=== PATIENT | female | born 1990 | race Caucasian/White ===

== ENCOUNTER 2019-08-25 09:45 | Emergency (ER) | payer MEDICAID ==
[~2019-08-25] VITALS: Ht 162.6 cm; Wt 79.5 kg
[~2019-08-25 09:45] MED LIST: DIPH25CA83 PO; METH4TAB PO; NITR100C6 PO; TRIA15CR61 TP
[2019-08-25 09:56] VITALS: BP 117/77
[2019-08-25] MEDS ORDERED: PNV1TABL75 PO (10:09)
== END 2019-08-25 11:06 | disposition home or self-care (01) ==
LOC: ER 09:45
DX: Z34.03 Encounter for supervision of normal first pregnancy, third trimester (principal); J45.909 Unspecified asthma, uncomplicated; Z79.899 Other long term (current) drug therapy; Z3A.34 34 weeks gestation of pregnancy
CPT/HCPCS: 99281

== ENCOUNTER 2021-03-13 11:04 | Emergency (ER) | payer MEDICAID ==
[~2021-03-13] VITALS: Ht 162.6 cm; Wt 65.9 kg
[~2021-03-13 11:04] MED LIST changes: -DIPH25CA83 PO; -METH4TAB PO; -NITR100C6 PO; +PNV1TABL75 PO; -TRIA15CR61 TP
[2021-03-13 11:06] VITALS: BP 137/98
--- NOTE | 2021-03-13 16:34 | NUR ---
Patient not in lobby for the third time, attempted to call patient at listed number. Number listed was incorrect. Dr. Robb aware.
== END 2021-03-13 16:35 | disposition left against medical advice (07) ==
LOC: ER 11:05
DX: S61.412A Laceration without foreign body of left hand, initial encounter (principal); Z53.21 Procedure and treatment not carried out due to patient leaving prior to being seen by health care provider; W45.8XXA Other foreign body or object entering through skin, initial encounter; Y93.9 Activity, unspecified; Y92.9 Unspecified place or not applicable; Y99.9 Unspecified external cause status

== ENCOUNTER 2021-11-05 10:26 | Emergency (ER) | payer MEDICAID ==
[~2021-11-05] VITALS: Ht 162.6 cm; Wt 65.0 kg
[2021-11-05 10:32] VITALS: BP 129/91
== END 2021-11-05 11:25 | disposition home or self-care (01) ==
LOC: ER 10:26
DX: S09.90XA Unspecified injury of head, initial encounter (principal); E51.9 Thiamine deficiency, unspecified; J45.909 Unspecified asthma, uncomplicated; Z79.899 Other long term (current) drug therapy; Y08.89XA Assault by other specified means, initial encounter; Y93.89 Activity, other specified; Y92.89 Other specified places as the place of occurrence of the external cause; Y99.8 Other external cause status
CPT/HCPCS: 99282

== ENCOUNTER 2021-12-13 21:23 | Emergency (ER) | payer MEDICAID ==
[~2021-12-13] VITALS: Ht 162.6 cm; Wt 65.0 kg
[2021-12-13 21:29] VITALS: BP 129/83
[2021-12-13] MEDS ORDERED: triamcinolone acetonide 40mg/ml inj IM ONE (22:00)
[2021-12-13] MEDS ORDERED: PRED10TA PO (22:03)
== END 2021-12-13 22:15 | disposition home or self-care (01) ==
LOC: ER 21:23
DX: L23.7 Allergic contact dermatitis due to plants, except food (principal); J45.909 Unspecified asthma, uncomplicated; Z79.899 Other long term (current) drug therapy
CPT/HCPCS: 96372; 99283; J3301

== ENCOUNTER 2022-10-02 18:02 | Emergency (ER) | payer MEDICAID ==
[~2022-10-02] VITALS: Ht 162.6 cm; Wt 61.5 kg
[~2022-10-02 18:02] MED LIST changes: +PRED10TA PO
[2022-10-02 19:19] LABS: CLARITY,URINE SLIGHTLY CLOUDY (Clear); COLOR,URINE YELLOW (Yellow); GLUCOSE, URINE NEGATIVE (Neg); KETONES,URINE NEGATIVE (Neg); LEUKOCYTE ESTERASE ,URINE SMALL (Neg); NITRITES, URINE POSITIVE (Neg); OCCULT BLOOD,URINE SMALL (Neg); PROTEIN,URINE NEGATIVE (Neg); UROBILINOGEN,URINE 0.2 E.U/dL (0.2-1.0)
[2022-10-02 19:21] LABS: URINE HCG NEGATIVE (NEG)
[2022-10-02 19:28] LABS: BACTERIA,URINE 1+ /HPF (Neg); SQUAMOUS EPITHELIAL CELL,UR FEW /LPF (FEW); UA COLLECTION TYPE CLN CATCH MIDSTREAM
[2022-10-02 20:12] LABS: BASOPHILS % (AUTO) 0.4 % (0-1); EOSINOPHILS # (AUTO) 0.2 X10'3 (0-0.9); EOSINOPHILS % (AUTO) 1.6 % (0-6); HEMOGLOBIN 14.1 g/dl (12.0-16.0); LYMPHOCYTES # (AUTO) 1.4 X10'3 (1.1-4.8); LYMPHOCYTES % (AUTO) 11.5 % (21-51); MEAN CORPUSCULAR HEMOGLOBIN 30.8 PG (27.0-31.0); MEAN CORPUSCULAR HGB CONC 34.3 g/dL (33.0-36.5); MEAN CORPUSCULAR VOLUME 89.7 FL (78-98); MEAN PLATELET VOLUME 7.5 FL (7.4-10.4); MONOCYTES # (AUTO) 1.2 X10'3 (0-0.9); MONOCYTES % (AUTO) 9.6 % (2-12); NEUTROPHILS # (AUTO) 9.4 X10'3 (1.8-7.7); NEUTROPHILS % (AUTO) 76.9 % (42-75); PLATELET COUNT 338 X10'3 (140-440); RED BLOOD COUNT 4.57 X10'6 (4.20-5.60); RED CELL DISTRIBUTION WIDTH 12.8 % (11.5-14.5); WHITE BLOOD COUNT 12.2 X10'3 (4.5-11.0)
--- NOTE | 2022-10-02 20:19 | NUR ---
PT DISCHARGED UNDER WRONG PATIENT.
[2022-10-02 20:23] LABS: ALANINE AMINOTRANSFERASE 22 U/L (12-78); ALBUMIN 3.7 G/DL (3.4-5.0); ALKALINE PHOSPHATASE 58 IU/L (46-116); ANION GAP 8 (8-16); ASPARTATE AMINO TRANSFERASE 19 U/L (10-37); BILIRUBIN,TOTAL 0.7 MG/DL (0.1-1.0); BLOOD UREA NITROGEN 11 MG/DL (7-18); BUN/CREATININE RATIO 15.1 (6.6-38.0); CALCIUM 8.5 MG/DL (8.5-10.1); CHLORIDE 101 MMOL/L (99-107); CREATININE 0.73 MG/DL (0.40-0.90); GLUCOSE 122 MG/DL (70-104); LIPASE 81 U/L (73-393); POTASSIUM 3.9 MMOL/L (3.5-5.1); SODIUM 135 MMOL/L (135-145); TOTAL CARBON DIOXIDE 25.7 MMOL/L (24-32); TOTAL PROTEIN 7.3 G/DL (6.4-8.2); eGFR > 90 ML/MIN
[2022-10-02] MEDS ORDERED: CefTRIAXone 2gm/D5W 50ml BAG 50 ML IV ONE (20:30)
[2022-10-02] MEDS ORDERED: ondansetron/PF 4mg/2ml inj IV ONE (20:30)
[2022-10-02] MEDS ORDERED: normal saline 1000ml 1,000 ML IV ONE (20:30)
[2022-10-02] MEDS ORDERED: morphine 4 MG/ML inj SYRINge IV ONE (20:30)
[2022-10-02] MEDS ORDERED: ketorolac trometh. 30mg/ml inj. IV ONE (20:30)
[2022-10-02] MEDS ORDERED: ONDA4TAB12 PO (21:00)
[2022-10-02] MEDS ORDERED: SULF1TAB45 PO (21:00)
[2022-10-02] MEDS ORDERED: HYDR-3965 PO (21:00)
[2022-10-02 21:54] VITALS: BP 126/85
== END 2022-10-02 21:57 | disposition home or self-care (01) ==
LOC: ER 18:03
DX: N12 Tubulo-interstitial nephritis, not specified as acute or chronic (principal); J45.909 Unspecified asthma, uncomplicated; Z79.899 Other long term (current) drug therapy
CPT/HCPCS: 36415; 80053; 81001; 81025; 83690; 85025; 87077; 87088; 87186; 96365; 96375; 99284; J0696; J1885; J2270; J2405; J7030

== ENCOUNTER 2024-01-02 14:49 | Emergency (ER) | payer MEDICAID ==
[~2024-01-02] VITALS: Ht 165.1 cm; Wt 68.7 kg
[~2024-01-02 14:49] MED LIST changes: +ONDA4TAB12 PO
[2024-01-02 14:52] VITALS: BP 127/90; PULSE 99; RESP 18; O2SAT 100
[2024-01-02] MEDS ORDERED: PRED20TA PO (15:16)
[2024-01-02] MEDS ORDERED: SKIN30CL4 TOP (15:16)
[2024-01-02] MEDS: dexamethasone sod phosphate 10mg/ml inj IM STA (15:20)
== END 2024-01-02 15:37 | disposition home or self-care (01) ==
LOC: ER 14:49
DX: L23.7 Allergic contact dermatitis due to plants, except food (principal); J45.909 Unspecified asthma, uncomplicated; Z79.899 Other long term (current) drug therapy
CPT/HCPCS: 96372; 99283; J1100

== ENCOUNTER 2024-11-16 23:52 | Emergency (ER) | payer MEDICAID ==
[~2024-11-16] VITALS: Ht 162.6 cm; Wt 56.4 kg
[~2024-11-16 23:52] MED LIST changes: +ONDA-243 PO; -ONDA4TAB12 PO; +SKIN30CL4 TOP
[2024-11-17] VITALS: BP 110/56; PULSE 89; RESP 15; TEMP 96.8; O2SAT 97
[2024-11-17] MEDS ORDERED: TRIA15CR61 TOP (00:59)
[2024-11-17] MEDS ORDERED: PRED20TA PO (00:59)
[2024-11-17] MEDS: dexamethasone 4mg/ml inj IM ONE (01:08)
== END 2024-11-17 01:12 | disposition home or self-care (01) ==
LOC: ER 23:52
DX: L23.7 Allergic contact dermatitis due to plants, except food (principal); J45.909 Unspecified asthma, uncomplicated; Z79.52 Long term (current) use of systemic steroids; Z79.899 Other long term (current) drug therapy
CPT/HCPCS: 96372; 99283; J1100

== ENCOUNTER 2024-12-12 00:23 | Emergency (ER) | payer MEDICAID ==
[~2024-12-12] VITALS: Ht 165.1 cm; Wt 67.0 kg
[~2024-12-12 00:23] MED LIST changes: +TRIA15CR61 TOP
[2024-12-12 00:27] VITALS: BP 141/95; PULSE 95; RESP 17; TEMP 97.9; O2SAT 99
== END 2024-12-12 02:21 | disposition left against medical advice (07) ==
LOC: ER 00:23
DX: Z02.9 Encounter for administrative examinations, unspecified (principal); Z53.21 Procedure and treatment not carried out due to patient leaving prior to being seen by health care provider

== ENCOUNTER 2024-12-12 16:54 | Emergency (ER) | payer MEDICAID ==
[~2024-12-12] VITALS: Ht 165.1 cm; Wt 65.0 kg
[2024-12-12 16:56] VITALS: BP 126/86; PULSE 109; RESP 17; TEMP 98.2; O2SAT 98
== END 2024-12-12 18:29 | disposition home or self-care (01) ==
LOC: ER 16:55
DX: Z00.8 Encounter for other general examination (principal); J45.909 Unspecified asthma, uncomplicated
CPT/HCPCS: 99281

== ENCOUNTER 2024-12-19 16:51 | Emergency (ER) | payer MEDICAID ==
[~2024-12-19] VITALS: Ht 167.6 cm; Wt 68.3 kg
[~2024-12-19 16:51] MED LIST changes: -TRIA15CR61 TOP
[2024-12-19 16:57] VITALS: TEMP 98.4
[2024-12-19 17:43] VITALS: BP 115/74; PULSE 99; RESP 14; O2SAT 98
== END 2024-12-19 17:43 | disposition home or self-care (01) ==
LOC: ER 16:52
DX: Z00.8 Encounter for other general examination (principal); J45.909 Unspecified asthma, uncomplicated; F12.90 Cannabis use, unspecified, uncomplicated; F15.90 Other stimulant use, unspecified, uncomplicated
CPT/HCPCS: 99281

== ENCOUNTER 2024-12-26 13:12 | Emergency (ER) | payer MEDICAID ==
[~2024-12-26] VITALS: Ht 162.6 cm; Wt 65.8 kg
[2024-12-26 13:19] VITALS: BP 120/85; PULSE 103; RESP 20; TEMP 98.7; O2SAT 97
[2024-12-26] MEDS ORDERED: PRED20TA PO (14:18)
[2024-12-26] MEDS ORDERED: HYDR-3686 PO (14:18)
[2024-12-26] MEDS: dexamethasone sod phosphate 10mg/ml inj IM STA (14:23)
== END 2024-12-26 14:31 | disposition home or self-care (01) ==
LOC: ER 13:13
DX: J45.909 Unspecified asthma, uncomplicated (principal); L23.7 Allergic contact dermatitis due to plants, except food; F15.90 Other stimulant use, unspecified, uncomplicated; F12.90 Cannabis use, unspecified, uncomplicated
CPT/HCPCS: 96372; 99283; J1100

== ENCOUNTER 2025-01-05 14:01 | Emergency (ER) | payer MEDICAID ==
[~2025-01-05] VITALS: Ht 165.1 cm; Wt 66.6 kg
[~2025-01-05 14:01] MED LIST changes: +HYDR-3686 PO
[2025-01-05 14:02] VITALS: BP 142/95; PULSE 100; RESP 16; TEMP 98.5; O2SAT 100
== END 2025-01-05 16:13 | disposition left against medical advice (07) ==
LOC: ER 14:02
DX: S61.012A Laceration without foreign body of left thumb without damage to nail, initial encounter (principal); J45.909 Unspecified asthma, uncomplicated; F12.90 Cannabis use, unspecified, uncomplicated; F15.90 Other stimulant use, unspecified, uncomplicated; Z79.899 Other long term (current) drug therapy; X58.XXXA Exposure to other specified factors, initial encounter; Y93.89 Activity, other specified; Y92.89 Other specified places as the place of occurrence of the external cause; Y99.8 Other external cause status
CPT/HCPCS: 99281

== ENCOUNTER 2025-02-04 17:48 | Emergency (ER) | payer MEDICAID ==
[~2025-02-04] VITALS: Ht 165.1 cm; Wt 67.6 kg
[2025-02-04 17:51] VITALS: BP 135/74; PULSE 102; RESP 18; TEMP 97.7; O2SAT 97
--- NOTE | 2025-02-04 17:58 | Physician Documentation ---
History of Present Illness ~ Chief Complaint: Medical Clearance Stated Complaint: [place] Time Seen by MD: 17:53 Primary Medical Doctor: NONE HPI Patient is seen today with complaints of needing med clearance to go to treatment at [facility] or other treatment center. Patient states she is turning, off alcohol and methamphetamines. Patient denies any significant alcohol history and denies any history of delirium tremens or shaking when stopping drinking. Patient states her last drink was last night. Patient states mainly she is trying to come off of methamphetamines. Patient has no new or other concern or complaint at this time. She denies any chest pain, shortness of breath, nausea, vomiting, diarrhea. Tetanus within 5 years?: Yes Medication Reconciliation Allergies: Coded Allergies: No Known Allergies (Unverified , 12/26/24) Scheduled Hydroxyzine Hcl (Atarax), 1 TAB PO Q8H ONDANSETRON ODT 4mg tablet (Ondansetron Odt), 1 TABLET PO Q6H Pnv No.122/Iron/Folic Acid ( Multi Tablet), 1 TAB PO DAILY, (Reported) Prednisone (Prednisone), 0 PO DAILY Skin Cleanser Combination No.8 (Zanfel), 1 APPLIC TOP PRN Past Medical History Past Medical History: Asthma Past Surgical History: no surgical history Other Past Family History: NONE Alcohol Use: None Drug Use: marijuana, methamphetamine Lives with: S/O Lives In: Home Occupation: employed Review of Systems Constitutional: Denies: chills, fever, weakness Eyes: Denies: pain, blurred vision ENT: Denies: ear pain, nose pain, throat pain, mouth pain Respiratory: Denies: cough, shortness of breath Cardiovascular: Denies: chest pain, palpitations Gastrointestinal: Denies: abdominal pain, nausea, vomiting Genitourinary: Denies: burning, dysuria Female Genitalia: Denies: vaginal discharge, pelvic pain Neurological: Denies: headache, dizziness Musculoskeletal: Denies: pain, swelling Integumentary: Denies: rash, lesions Allergic/Immunologic: Denies: hives, itching Hematologic/Lymphatic: Denies: no symptoms reported Psychiatric: Denies: depression, anxiety Physical Exam Vital Signs: Temperature: 97.7, Source: Temporal, Heart Rate: 102, Respiratory Rate: 18, BP: 135/74, Pulse Oximetry: 97, Weight: 67.600 Oxygen Flow Rate: 0 Physical Exam General: Awake and Alert, no acute distress. HEENT: Conjunctiva pink, Sclera clear, Mucus Membranes moist. Neck: Supple without masses and tenderness. Resp: Unlabored. Lungs clear to auscultation bilaterally. Heart: Regular Rate and rhythm, normal S1 and S2 without murmur, rub or gallop. Abdomen: Soft and non tender no organomegaly Extremities: No cyanosis,clubbing or edema. Skin: Warm and Dry. Progress Results/Orders Results/Orders Vital Signs 02/04/25 17:51 Temp 97.7 Pulse 102 Resp 18 B/P (MAP) 135/74 Pulse Ox 97 O2 Flow Rate 0 Medical Decision Making Findings Patient is seen today with complaints of needing med clearance to go to treatment at [facility] or other treatment center. Patient states she is turning, off alcohol and methamphetamines. Patient denies any significant alcohol history and denies any history of delirium tremens or shaking when stopping drinking. Patient states her last drink was last night. Patient states mainly she is trying to come off of methamphetamines. Patient has no new or other concern or complaint at this time. She denies any chest pain, shortness of breath, nausea, vomiting, diarrhea. Patient is medically cleared for treatment at [facility] or any other treatment facility. Patient is cleared from medical standpoint. Patient will return to ED with any worsening, concerning or changing symptoms. Shared decision-making utilized with the patient today. Departure Disposition: 01 HOME / SELF CARE / HOMELESS Impression: Primary Impression: General medical exam Additional Impression: Methamphetamine abuse Condition: Stable Discharge Instructions: Medical Screening Exam Additional Instructions: Patient is medically cleared for treatment at [facility] or any other treatment facility. Patient is cleared from medical standpoint. Patient will return to ED with any worsening, concerning or changing symptoms. Shared decision-making utilized with the patient today. Referrals: NO PRIMARY CARE PROVIDER (PCP) Signature Scribe Signature: No scribe Attestation: No scribe ALPHONSO CONRAD February 04, 2025 17:58
== END 2025-02-04 18:02 | disposition home or self-care (01) ==
LOC: ER 17:48
DX: Z00.8 Encounter for other general examination (principal); F15.10 Other stimulant abuse, uncomplicated; J45.909 Unspecified asthma, uncomplicated
CPT/HCPCS: 99281

== ENCOUNTER 2025-03-04 21:38 | Emergency (ER) | payer MEDICAID ==
[~2025-03-04] VITALS: Ht 162.6 cm; Wt 61.0 kg
--- NOTE | 2025-03-04 22:39 | Physician Documentation ---
HPI ~ General Chief Complaint: Tooth Problem Stated Complaint: MOUTH INFECTION Time Seen by MD: 22:06 Primary Medical Doctor: NONE History of Present Illness HPI Comment Patient is seen today with complaints of dental pain of front incisor on the upper jaw. Patient states he feels it is infected in his been hurting worse over the last few days. She has no other concern or complaint at this time. She denies any fevers or chills. Medication Reconciliation Allergies: Coded Allergies: No Known Allergies (Unverified , 12/26/24) Scheduled Hydroxyzine Hcl (Atarax), 1 TAB PO Q8H ONDANSETRON ODT 4mg tablet (Ondansetron Odt), 1 TABLET PO Q6H Pnv No.122/Iron/Folic Acid ( Multi Tablet), 1 TAB PO DAILY, (Reported) Prednisone (Prednisone), 0 PO DAILY Skin Cleanser Combination No.8 (Zanfel), 1 APPLIC TOP PRN Past Medical History Past Medical History: Asthma Past Surgical History: no surgical history Other Past Family History: NONE Alcohol Use: None Drug Use: marijuana, methamphetamine Lives with: S/O Lives In: Home Occupation: employed Review of Systems Constitutional: Denies: chills, fever, weakness Eyes: Denies: pain, blurred vision ENT: Denies: ear pain, nose pain, throat pain, mouth pain Respiratory: Denies: cough, shortness of breath Cardiovascular: Denies: chest pain, palpitations Gastrointestinal: Denies: abdominal pain, nausea, vomiting Genitourinary: Denies: burning, dysuria Female Genitalia: Denies: vaginal discharge, pelvic pain Neurological: Denies: headache, dizziness Musculoskeletal: Denies: pain, swelling Integumentary: Denies: rash, lesions Allergic/Immunologic: Denies: hives, itching Hematologic/Lymphatic: Denies: no symptoms reported Psychiatric: Denies: depression, anxiety Physical Exam Vital Signs: Temperature: 97.6, Source: Temporal, Heart Rate: 89, Respiratory Rate: 16, BP: 138/85, Pulse Oximetry: 100, Weight: 61.000 Oxygen Flow Rate: 0 Physical Exam General: Awake and Alert, no acute distress. HEENT: Patient on exam does have very poor dentition with multiple caries and dental fractures. Patient has swelling of her upper gums. No periapical abscess appreciated. Conjunctiva pink, Sclera clear, Mucus Membranes moist. Neck: Supple without masses and tenderness. Resp: Unlabored. Lungs clear to auscultation bilaterally. Heart: Regular Rate and rhythm, normal S1 and S2 without murmur, rub or gallop. Abdomen: Soft and non tender no organomegaly Extremities: No cyanosis,clubbing or edema. Skin: Warm and Dry. Progress Results/Orders Results/Orders Vital Signs 03/04/25 21:43 Temp 97.6 Pulse 89 Resp 16 B/P (MAP) 138/85 Pulse Ox 100 O2 Flow Rate 0 Medical Decision Making Findings Patient is seen today with complaints of dental pain of front incisor on the upper jaw. Patient states he feels it is infected in his been hurting worse over the last few days. She has no other concern or complaint at this time. She denies any fevers or chills. Patient was given dose of amoxicillin a 1000 mg in the ED tonight, with prescription sent to patient's pharmacy and patient also given Tylenol ibuprofen in ED tonight with prescription sent to her pharmacy. Patient will follow up with primary care in 2-5 days if no better as needed sooner. Patient will make appointment with dentist. Return to ED with any worsening, concerning or nj nging symptoms. Departure Disposition: 01 HOME / SELF CARE / HOMELESS Impression: Primary Impression: Dental abscess Condition: Improved Discharge Instructions: Dental Abscess Referrals: NO PRIMARY CARE PROVIDER (PCP) Prescriptions Acetaminophen (Tylenol Extra Strength) 500 Mg Tablet 2 TAB PO Q6H PRN PRN for pain or fever for 7 Days, #56 TAB Prov: ALPHONSO CONRAD 03/04/25 Ibuprofen (Ibuprofen) 800 Mg Tablet 1 TAB PO Q8H for pain for 10 Days, #30 TAB 0 Refills Prov: ALPHONSO CONRAD 03/04/25 Amoxicillin Trihydrate (Amoxicillin) 875 Mg Tablet 1 TAB PO Q12H for 10 Days, #20 TAB Prov: ALPHONSO CONRAD 03/04/25 Signature Scribe Signature: No scribe Attestation: No scribe ALPHONSO CONRAD Mar 04, 2025 22:39
[2025-03-04] MEDS ORDERED: ACET-1025 PO (22:41)
[2025-03-04] MEDS ORDERED: IBUP-1986 PO (22:41)
[2025-03-04] MEDS ORDERED: AMOX875T10 PO (22:41)
[2025-03-04] MEDS: amoxicillin 250mg capsule PO STA (22:56)
[2025-03-04] MEDS: acetaminophen 325mg tablet PO STA (22:57)
[2025-03-04] MEDS: ibuprofen tablet 400 MG TABLET PO STA (22:57)
[2025-03-04 23:00] VITALS: BP 132/82; PULSE 74; RESP 16; TEMP 97.6; O2SAT 100
== END 2025-03-04 23:02 | disposition home or self-care (01) ==
LOC: ER 21:38
DX: K04.7 Periapical abscess without sinus (principal); K02.9 Dental caries, unspecified; J45.909 Unspecified asthma, uncomplicated; F12.90 Cannabis use, unspecified, uncomplicated; F15.10 Other stimulant abuse, uncomplicated
CPT/HCPCS: 99284

== ENCOUNTER 2025-04-21 04:20 | Emergency (ER) | payer MEDICAID ==
[~2025-04-21] VITALS: Ht 162.6 cm; Wt 63.4 kg
[~2025-04-21 04:20] MED LIST changes: +IBUP-1986 PO
[2025-04-21 04:29] VITALS: BP 123/75; PULSE 100; RESP 15; TEMP 96.8; O2SAT 99
== END 2025-04-21 05:38 | disposition left against medical advice (07) ==
LOC: ER 04:20
DX: S31.050A Open bite of lower back and pelvis without penetration into retroperitoneum, initial encounter (principal); Z53.21 Procedure and treatment not carried out due to patient leaving prior to being seen by health care provider; W54.0XXA Bitten by dog, initial encounter; Y93.89 Activity, other specified; Y92.89 Other specified places as the place of occurrence of the external cause; Y99.8 Other external cause status